=== PATIENT | female | born 1965 | race Caucasian/White ===

== ENCOUNTER 2021-08-30 04:02 | Day surgery (SDCO) | payer OTHER ==
[~2021-08-30] VITALS: Ht 162.6 cm; Wt 71.8 kg
[2021-08-30 05:43] LABS: BASOPHIL 0.5 % (0-2); EOSINOPHIL 0.8 % (0-5); HCT 40.8 % (37.0-47.0); HGB 14.2 g/dl (12.5-16.0); LYMPHOCYTE 13.2 % (15-48); MCH 31.4 pg (25.0-31.0); MCHC 34.8 g/dL (32.0-36.0); MCV 90.3 fL (78.0-100.0); MONOCYTE 4.7 % (0-12); MPV 9.5 fL (6.0-9.5); NEUTROPHIL 80.6 % (41-80); NRBC 0; PLT 280 K/uL (150-400); RBC 4.52 M/uL (4.20-5.40); RDW 11.9 % (11.5-14.0); WBC 8.4 K/uL (4.0-10.5)
[2021-08-30 06:01] LABS: ALBUMIN 4.4 g/dL (3.4-5.0); BILIRUBIN - TOTAL 0.8 mg/dL (0.2-1.0); BUN/CREAT RATIO (CALC) 20.3 RATIO; CREATININE 0.64 mg/dL (0.51-0.95); GLOBULIN (CALCULATION) 3.4 g/dL; POTASSIUM 3.9 mmol/L (3.5-5.1); TOTAL PROTEIN 7.8 g/dL (6.4-8.2)
[2021-08-30 06:05] LABS: LACTIC ACID 0.4 mmol/L (0.4-1.9)
[2021-08-31 06:31] LABS: BASOPHIL 0.5 % (0-2); EOSINOPHIL 0.8 % (0-5); HCT 36.2 % (37.0-47.0); HGB 12.2 g/dl (12.5-16.0); MCH 32.2 pg (25.0-31.0); MCHC 33.7 g/dL (32.0-36.0); MONOCYTE 9.8 % (0-12); MPV 8.9 fL (6.0-9.5); NEUTROPHIL 62.5 % (41-80); NRBC 0; PLT 239 K/uL (150-400); RBC 3.79 M/uL (4.20-5.40); RDW 12.1 % (11.5-14.0); WBC 7.9 K/uL (4.0-10.5)
[2021-08-31 06:41] LABS: MCV 95.5 fL (78.0-100.0)
[2021-08-31 06:57] LABS: BUN/CREAT RATIO (CALC) 13.6 RATIO; CREATININE 0.66 mg/dL (0.51-0.95); POTASSIUM 3.8 mmol/L (3.5-5.1)
[2021-09-01 07:23] LABS: BASOPHIL 0.7 % (0-2); EOSINOPHIL 2.3 % (0-5); HCT 38.9 % (37.0-47.0); HGB 12.6 g/dl (12.5-16.0); LYMPHOCYTE 18.8 % (15-48); MCH 31.5 pg (25.0-31.0); MCHC 32.4 g/dL (32.0-36.0); MCV 97.3 fL (78.0-100.0); MONOCYTE 9.4 % (0-12); MPV 9.8 fL (6.0-9.5); NEUTROPHIL 68.5 % (41-80); NRBC 0; WBC 7.4 K/uL (4.0-10.5)
[2021-09-01 07:33] LABS: BUN/CREAT RATIO (CALC) 16.1 RATIO; CREATININE 0.62 mg/dL (0.51-0.95); POTASSIUM 4.6 mmol/L (3.5-5.1)
[2021-09-01 07:53] LABS: PLT 204 K/uL (150-400)
[2021-09-01] MEDS ORDERED: PERCOCET 5-3251 EACH PO (10:05)
--- NOTE | 2021-09-01 10:12 | NUR ---
SPOKE TO HELADIO AT [facility] SHE SAID SHE COULD GET HER IN AT ON SEPTEMBER 11, @ 1PM. TO DO NEW PATIENT AND STAPLE REMOVAL. APPOINTMENT TIME IS 1PM; HOWEVER SHE NEEDS TO BE THERE 15-20 MINUTES EARLY TO FILL OUT PAPER WORK FOR NEW PATEINT.
--- NOTE | 2021-09-01 10:16 | NUR ---
DR. LLAMAS APPROVED THE STAPLE REMOVAL AT [facility] [phone].
== END 2021-09-01 12:38 | disposition home or self-care (01) ==
LOC: FER 04:02 → FMS 08:18
PROVIDERS: Emergency Medicine Emergency Medical Services; ADMIT Internal Medicine
DX: K63.3 Ulcer of intestine (principal); K56.609 Unspecified intestinal obstruction, unspecified as to partial versus complete obstruction; K43.0 Incisional hernia with obstruction, without gangrene; U07.1 COVID-19; R91.1 Solitary pulmonary nodule; Z90.49 Acquired absence of other specified parts of digestive tract; K92.2 Gastrointestinal hemorrhage, unspecified
CPT/HCPCS: 36415; 71045; 71250; 80048; 80053; 83605; 84145; 85025; 94010; C1765; G0378; J0330; J0694; J1100; J1170; J2370; J2405; J2704; J3010; J7030; J7120; Q9967; U0002